=== PATIENT | male | born 1970 | race Caucasian/White ===

== ENCOUNTER 2024-07-19 00:37 | Emergency (ER) | payer SELFPAY ==
[~2024-07-19] VITALS: Ht 182.9 cm; Wt 90.0 kg
[2024-07-19 00:40] VITALS: BP 110/88; PULSE 80; RESP 16; O2SAT 98
[2024-07-19] MEDS ORDERED: NAPR-1176 MT (01:39)
[2024-07-19] MEDS ORDERED: LIDO700A15 TP (01:39)
[2024-07-19 01:45] VITALS: TEMP 97.6
[2024-07-19] MEDS: ACETAMINOPHEN 325MG TABLET PO ONE (01:45)
== END 2024-07-19 02:30 | disposition home or self-care (01) ==
LOC: ER 00:37
DX: M79.604 Pain in right leg (principal); M79.605 Pain in left leg
CPT/HCPCS: 99283

== ENCOUNTER 2025-03-06 19:12 | Emergency (ER) | payer MEDICARE ==
[~2025-03-06] VITALS: Ht 177.8 cm; Wt 68.0 kg
[~2025-03-06 19:12] MED LIST: LIDO-53 TP; NAPR-1176 MT
[2025-03-06 19:21] VITALS: BP 102/56; PULSE 78; RESP 18; TEMP 36.8; O2SAT 98
[2025-03-06] MEDS ORDERED: PERM60CR4 TP (21:38)
[2025-03-06] MEDS: ACETAMINOPHEN 500MG TABLET PO ONE (22:00)
== END 2025-03-06 23:30 | disposition home or self-care (01) ==
LOC: ER 19:12
DX: M79.671 Pain in right foot (principal); M79.672 Pain in left foot; M25.512 Pain in left shoulder; Z79.899 Other long term (current) drug therapy
CPT/HCPCS: 99283

== ENCOUNTER 2025-03-16 20:29 | Emergency (ER) | payer SELFPAY ==
[~2025-03-16 20:29] MED LIST changes: +PERM60CR4 TP
[2025-03-16 20:57] VITALS: PULSE 88; RESP 18; O2SAT 100
[2025-03-16] MEDS ORDERED: ACET-2708 MT (21:10)
== END 2025-03-16 21:14 | disposition left against medical advice (07) ==
LOC: ER 20:29
DX: M79.673 Pain in unspecified foot (principal); Z53.21 Procedure and treatment not carried out due to patient leaving prior to being seen by health care provider